=== PATIENT | female | born 1985 | race Caucasian/White ===

== ENCOUNTER 2017-11-29 06:16 | Day surgery (SDC) | payer OTHER ==
[2017-11-29] MEDS ORDERED: SOD CHLORIDE 0.9% 1,000 ML IV (06:42)
[2017-11-29] MEDS ORDERED: DIAZEPAM 5 MG TAB PO (07:00)
[2017-11-29] MEDS ORDERED: DIPHENHYDRAMINE 50 MG CAP PO (07:00)
[2017-11-29] MEDS ORDERED: IODIXANOL LOCM 100 ML BTL (07:52)
[2017-11-29] MEDS ORDERED: FENTAnyl 50 MCG/ML VIAL ×2 (07:52→09:10)
[2017-11-29] MEDS ORDERED: LIDOCAINE 1% (MDV) 20 ML INJ ×12 (07:52→09:53)
[2017-11-29] MEDS ORDERED: MIDAZOLAM 1 MG/ML 2 ML INJ ×2 (07:52→08:37)
[2017-11-29 08:16] LABS: CHLORIDE 89 mmol/L (97-110); GLUCOSE 98 mg/dl (70-220); MAGNESIUM 1.7 mg/dl (1.7-2.5)
[2017-11-29 08:29] LABS: ANION GAP 17 (8-16); BLOOD UREA NITROGEN 28 mg/dl (7-20); CALCIUM 9.2 mg/dl (8.4-10.2); CREATININE 1.03 mg/dl (0.44-1.00); SODIUM 142 mmol/L (135-144)
[2017-11-29] MEDS ORDERED: MAGNESIUM SULFATE 2 GM/50 ML 50 ML (08:30)
[2017-11-29 08:31] LABS: CARBON DIOXIDE 41 mmol/L (21-31)
[2017-11-29 10:26] LABS: MODE MASK - SIMPLE; MetHgb Mixed Venous 0.4 %; Mixed Venous COHb 1.2 %; Mixed Venous Fraction OxyHgb 78.2 %; Mixed Venous Total Hemglobin 13.5 g/dl; Sample Type BLMV; Site PUL ART LINE
[2017-11-29] MEDS ORDERED: AL HYDROX/MG HYDROX/SIMETH 30 ML CUP PO (10:30)
[2017-11-29] MEDS ORDERED: ONDANSETRON 4 MG INJ IV (10:30)
[2017-11-29 10:36] LABS: Arterial Blood Gas Oxygen Sat 77.8 mmHG (95.0-98.0); Arterial COHb 0.7 % (0.0-3.0); Arterial Fraction of Oxyhgb 76.9 % (93.0-99.0); Arterial MetHb 0.5 % (0.0-1.5); Arterial Total Hemglobin 13.1 g/dl (12.0-18.0); MODE MASK - SIMPLE; Sample Type BLMV; Site PUL ART LINE
[2017-11-29] MEDS ORDERED: NALOXONE (0.4 MG/ML) INJ (11:18)
[2017-11-29 11:35] LABS: Allen Test ACCEPTAB; Arterial Base Excess 8.2 mmol/L (-3.0-3); Arterial Blood Gas Oxygen Sat 98.7 mmHG (95.0-98.0); Arterial Fraction of Oxyhgb 97.2 % (93.0-99.0); Arterial MetHb 0.5 % (0.0-1.5); Arterial Total Hemglobin 13.7 g/dl (12.0-18.0); Arterial pCO2 90.5 mmhg (35-45); MODE MASK - NRB; Site Right Radial
[2017-11-29] MEDS: NALOXONE (0.4 MG/ML) INJ IV (11:45)
[2017-11-29 12:16] LABS: AADO2 Arterial 138.1 mmHg (7.0-24.0); Allen Test ACCEPTAB; Arterial Base Excess 10.6 mmol/L (-3.0-3); Arterial Blood Gas Oxygen Sat 88.5 mmHG (95.0-98.0); Arterial COHb 1.4 % (0.0-3.0); Arterial Fraction of Oxyhgb 86.9 % (93.0-99.0); Arterial HCO3 38.6 mmol/L (22.0-26.0); Arterial MetHb 0.4 % (0.0-1.5); Arterial Total Hemglobin 13.1 g/dl (12.0-18.0); Arterial pCO2 68.1 mmhg (35-45); MODE NASAL CANNULA; Site Left Radial
== END 2017-11-29 13:25 | disposition home or self-care (01) ==
LOC: SDS 06:16
DX: K76.6 Portal hypertension (principal); I50.9 Heart failure, unspecified; E66.01 Morbid (severe) obesity due to excess calories; Z68.45 Body mass index [BMI] 70 or greater, adult; G47.33 Obstructive sleep apnea (adult) (pediatric)
CPT/HCPCS: 36592; 36600; 71045; 80048; 82803; 82962; 83735; 84703; 93451; 94660